=== PATIENT | female | born 1965 | race Caucasian/White ===

== ENCOUNTER 2019-02-23 12:30 | Inpatient (IN) | payer BC ==
[2019-02-23 13:02] VITALS: BMI 34.3
--- NOTE | 2019-03-09 09:37 | HP ---
HISTORY OF PRESENT ILLNESS: The patient is a 54-year-old female, part-time teacher's aide, who has a greater than 1 year history of progressive right hip pain without injury. She has had progressive pain, which is worse with walking, getting dressed, and getting in and out of a car. She has had progressive symptoms despite rest, restriction of activities, attempted lifestyle adjustments and use of ibuprofen. The pain is now interfering with day-to-day activities. PAST MEDICAL HISTORY: The patient is otherwise in good health. She has history of hypothyroidism. She is followed by Dr. Wolff. CURRENT MEDICATIONS: Include; 1. Levothyroxine. 2. Multivitamins. 3. Calcium and vitamin D. ALLERGIES: SHE IS ALLERGIC TO PENICILLIN. FAMILY HISTORY: Otherwise, unremarkable. SOCIAL HISTORY: Otherwise, unremarkable. REVIEW OF SYSTEMS: Otherwise, unremarkable. PHYSICAL EXAMINATION: GENERAL: Reveals a healthy female. HEENT: Unremarkable. NECK: Supple. CHEST: Clear. HEART: Regular rate and rhythm. ABDOMEN: Soft and nontender. PELVIC: Deferred. RECTAL: Deferred. BREASTS: Deferred. EXTREMITIES: Pertinent findings related to the left hip, leg lengths were equal. There is tenderness in the anterior hip and left groin. There are no masses. There is decreased range of motion of the right hip and groin pain with internal rotation of the hip. There is a left antalgic gait. NEUROVASCULAR: Intact. DIAGNOSTIC STUDIES: X-rays of the left hip reveal severe DJD. IMPRESSION: 1. Degenerative arthritis, left hip. 2. History of hypothyroidism. PLAN: Left total hip replacement. The nature of the surgery, length of recovery, and potential complications such as infection, loss of motion, incomplete relief, neurovascular injury, thromboembolic phenomena, leg-length discrepancy, possible transfusion, and need for revision have been discussed in detail. Job ID: [id number]
[2019-03-09 10:00] LABS: #Basophils 0.1 thou/uL (0.0-0.2); #Eosinphils 0.3 thou/uL (0.0-0.7); #Lymphocytes 1.4 thou/uL (1.20-3.40); #Monocytes 0.6 thou/uL (0.11-0.59); #Neutrophils 3.2 thou/uL (1.40-6.50); %Basophils 1.2 % (0.0-1.0); %Eosinophils 6.2 % (0.0-10.0); %Lymphocytes 25.7 % (21.0-51.0); %Monocytes 10.1 % (0.0-10.0); %Neutrophils 56.9 % (42.0-75.0); Hemoglobin 13.6 g/dL (12.0-16.0); Mean Corpuscular HGB CONC 34.3 g/dL (32.0-36.0); Mean Corpuscular Hemoglobin 30.4 pg (27.0-31.0); Mean Corpuscular Volume 88.5 fL (78.0-98.0); Mean Platelet Volume 8.4 fL (7.4-10.4); Platelet Count 251 thou/uL (130-400); Red Blood Cell (RBC) Count 4.48 mill/uL (4.20-5.40); White Blood Cell (WBC) Count 5.6 thou/uL (4.8-10.8)
[2019-03-09 10:01] LABS: Prothrombin Time 12.8 SEC (12.0-14.7)
[2019-03-09 10:07] LABS: Anion Gap 13 mmol/L (10-20); BUN (Urea Nitrogen) 22 mg/dL (9.8-20.1); Calc. Creatinine Clearance 0 mL/min (70-130); Calcium 9.6 mg/dL (7.8-10.44); Carbon Dioxide 24 mmol/L (22-29); Chloride 107 mmol/L (98-107); Estimated GFR-MDRD 61; Glucose 114 mg/dL (70-105); Potassium 4.2 mmol/L (3.5-5.1); Sodium 140 mmol/L (136-145)
[2019-03-15] MEDS ORDERED: Levofloxacin 500 mg/D5W 100 ml Premix Bag ONE (06:08)
[2019-03-15] MEDS ORDERED: Tranexamic Acid 1,000 MG/10 ML VIAL ONE ×2 (06:08→10:05)
[2019-03-15] MEDS ORDERED: Sodium Chloride 0.9% 100 ML ONE (06:08)
[2019-03-15] MEDS ORDERED: Vancomycin HCl 1.5 GM in Sodium Chloride 0.9% 250 ML 300 ML IVPB SCH ×2 (06:15→18:00)
[2019-03-15] MEDS ORDERED: Fentanyl 100 MCG/2 ML VIAL ONE ×4 (06:16→09:38)
[2019-03-15] MEDS ORDERED: Midazolam HCl 2 mg/2 ml Vial ONE (06:16)
[2019-03-15] MEDS ORDERED: Acetaminophen 500 MG TAB PO PRN (07:40)
[2019-03-15] MEDS ORDERED: Bupivacaine/Epinephrine 0.25% 30 ML VIAL ONE (07:44)
[2019-03-15] MEDS ORDERED: Naloxone HCl 0.4 mg/ml Vial IV PRN (07:45)
[2019-03-15] MEDS ORDERED: HYDROcodone/Acetaminophen 5/325 mg Tablet PO PRN ×2 (07:45)
[2019-03-15] MEDS ORDERED: Naloxone HCl 0.4 mg/ml Vial IVP PRN (07:45)
[2019-03-15] MEDS ORDERED: diphenhydrAMINE 25 MG CAP PO PRN ×2 (07:45→09:24)
[2019-03-15] MEDS ORDERED: Zolpidem Tartrate 5 MG TAB PO PRN ×2 (07:45→09:24)
[2019-03-15] MEDS ORDERED: diphenhydrAMINE 50 MG/ML VIAL IM PRN (07:45)
[2019-03-15] MEDS ORDERED: Hydrocerin (Eucerin) Cream 120 gm Jar TOP PRN (07:45)
[2019-03-15] MEDS ORDERED: diphenhydrAMINE 50 MG/ML VIAL IVP PRN (07:45)
[2019-03-15] MEDS ORDERED: Bupivacaine 0.25% 10 ML VIAL EPIDURAL PRN (07:45)
[2019-03-15] MEDS ORDERED: traMADol HCl 50 MG TAB PO PRN ×3 (07:45→09:24)
[2019-03-15] MEDS ORDERED: Ondansetron PF 4 MG/2 ML Vial IVP PRN ×2 (07:45→09:24)
[2019-03-15] MEDS ORDERED: Promethazine HCl 25 MG/ML VIAL IM PRN (07:45)
[2019-03-15] MEDS ORDERED: Promethazine HCl 25 MG SUPP PR PRN (07:45)
[2019-03-15] MEDS ORDERED: Tranexamic Acid 1,000 MG in Sodium Chloride 0.9% 100 ML IVPB SCH ×2 (09:15→09:24)
[2019-03-15] MEDS ORDERED: Fentanyl 100 MCG/2 ML VIAL SLOW IVP PRN ×2 (09:24)
[2019-03-15] MEDS ORDERED: HYDROcodone/Acetaminophen 10/325 mg Tablet PO PRN ×2 (09:24)
[2019-03-15] MEDS ORDERED: Promethazine HCl 25 MG/ML VIAL SLOW IVP PRN (09:24)
--- NOTE | 2019-03-15 10:08 | RAD ---
LEFT HIP TWO VIEWS: HISTORY: Postop total hip replacement. COMPARISON: 12/16/2018 FINDINGS: Recent total left hip replacement without dislocation or periprosthetic fracture. IMPRESSION: Unremarkable postoperative total left hip replacement. POS: C
[2019-03-15] MEDS ORDERED: Thyroid 30 MG TAB PO SCH ×2 (10:15)
[2019-03-15] MEDS ORDERED: Fish Oil 1,000 MG CAP PO SCH (10:15)
[2019-03-15] MEDS ORDERED: Aspirin 81 mg Enteric Coated Tablet PO SCH (10:15)
[2019-03-15] MEDS ORDERED: Calcium Carbonate 500 MG ChewTAB PO PRN (10:15)
--- NOTE | 2019-03-15 10:35 | OP ---
DATE OF PROCEDURE: 03/15/2019 This is Angel Araujo PA-C dictating a report for Greg Anders MD. ANESTHESIA: General via endotracheal tube augmented with indwelling epidural. PREOPERATIVE DIAGNOSIS: End-stage bicompartmental osteoarthritis, left hip. POSTOPERATIVE DIAGNOSIS: End-stage bicompartmental osteoarthritis, left hip. PROCEDURE PERFORMED: Press-fit left total hip arthroplasty. SURGEON: Greg Anders MD STAFF COUNSELOR: Angel Araujo PA-C COMPONENT USED: [facility] Accolade II, press-fit size 3 hip stem with a Trident PSL size 50 mm cluster acetabular shell, 10 degree polyethylene fixed-bearing insert, and a ceramic 36 mm neutral offset femoral head. FINDINGS: End-stage severe degenerative bicompartmental disease, [id number] arthrosis, periarticular osteophyte formation, large serous effusion, hypertrophic synovium and capsule. ESTIMATED BLOOD LOSS: 400 mL. DRAINS: None. SPECIMENS: None. COMPLICATIONS: None. COUNTS: Correct. INPUT: 900 mL. OUTPUT: 200 mL clear yellow urine. INDICATION FOR SURGERY: Cathleen is a 54-year-old white female, who has had progressive left hip, groin, and thigh pain, and problem with standing and walking for the last 5 to 7 years. She has failed conservative management and elected to proceed with total hip arthroplasty as definitive treatment for pain. PROCEDURE IN DETAIL: After informed consent was obtained in the preoperative holding area, the patient was taken to the operative suite where general anesthesia was induced. The patient was then positioned in the lateral decubitus position. The hip was then prepped and draped in usual sterile fashion. The patient received preoperative antibiotics. Prior to incision, time-out was called and all members of the surgical team agreed upon site, surgeon, and patient. After this, a longitudinal incision was made directly over the trochanter, noted by palpation extending 2 fingerbreadths above and below the trochanter. The deeper subcutaneous layer was undermined with Bovie electrocautery. The iliotibial band was encountered and incised sharply and the plane below this was developed bluntly. A Charnley retractor was placed to hold this opened. The lateral aspect of the trochanter and the abductor muscles were encountered and then reflected anteriorly off the trochanter using Bovie electrocautery. Once this was completed, the anterior capsule was then encountered and identified and copious capsulotomy was carried out, exposing the femoral neck and head. Dislocation maneuver was then performed and an in situ provisional neck cut was then made using the oscillating saw. Attention was then turned to acetabular preparation. Sequential reaming was carried out up to the appropriate diameter and a trial was then malleted into place with good firm resistance and no pullout. The permanent acetabular shell was then malleted squarely into place, as was the appropriate liner. Once completed, the wound was copiously irrigated and attention was then turned to femoral preparation. Flexion and external rotation were performed of the exposed thigh and femoral elevators were then placed at the proximal aspect of the wound. Canal finder was used to establish the length of the canal and sequential reaming was carried out, followed by broaching. Once the appropriate stability was established with the trial broaches with flexion, extension and rotational stability, we did trial with neutral and 2 mm offset incremental necks. Once the appropriate size was decided upon, with good stability noted with flexion, extension, internal and external rotation and shuck being negative, we removed the femoral trial broach and malletted into place the permanent prosthesis with good firm fit, which was also stable to rotation. Again, the hip felt very stable to flexion, extension, internal and external rotation. Leg lengths appeared near anatomic clinically and we were quite happy with prosthesis placement. Copious irrigation was then carried out through the entirety of the wound. Primary closure of the abductors was accomplished with interrupted #2 Vicryl [id number] stitches and the IT band was then closed with interrupted #2 Vicryl, oversewn with a #2 running barbed Quill stitch. Subcutaneous fascia was closed with running barbed Quill stitch and a subcuticular Monocryl barbed Quill stitch was used for skin closure and augmented with skin cement. A sterile dressing was applied. The procedure was terminated without any complication. All counts were correct. The patient was awakened in the operative suite and taken to the recovery room in stable condition. Job ID: [id number]
[2019-03-15] MEDS ORDERED: ALPRAZolam 0.5 MG TAB PO PRN (11:57)
[2019-03-15] MEDS ORDERED: Ketorolac Tromethamine 30 MG/ML VIAL IVP SCH (12:00)
[2019-03-15] MEDS ORDERED: Dexamethasone 20 MG/5 ML VIAL ONE (15:16)
[2019-03-15] MEDS ORDERED: Ketorolac Tromethamine 30 MG/ML VIAL ONE (15:16)
[2019-03-15] MEDS ORDERED: Labetalol HCl 100 MG/20 ML VIAL ONE (15:16)
[2019-03-15] MEDS ORDERED: PROPOFOL 200 MG/20 ML VIAL ONE (15:16)
[2019-03-15] MEDS ORDERED: Lidocaine 1% PF 5 ML VIAL ONE (15:16)
[2019-03-15] MEDS ORDERED: Ondansetron PF 4 MG/2 ML Vial ONE (15:16)
[2019-03-15] MEDS ORDERED: Glycopyrrolate 0.2 MG/ML 5 ML SYRINGE ONE (15:16)
[2019-03-15] MEDS ORDERED: Rocuronium Bromide 10 MG/ML (10ML VIAL) ONE (15:16)
[2019-03-16] MEDS ORDERED: Levofloxacin 500 mg/D5W 100 ml Premix Bag ONE (05:18)
[2019-03-16] MEDS ORDERED: Aspirin 81 mg Enteric Coated Tablet ONE (08:23)
[2019-03-16] MEDS ORDERED: Ketorolac Tromethamine 30 MG/ML VIAL ONE (08:23)
[2019-03-16] MEDS ORDERED: Acetaminophen 325 MG TAB ONE (08:24)
[2019-03-16] MEDS: Ketorolac Tromethamine 30 MG/ML VIAL IVP PRN ×2 (08:35→22:39)
[2019-03-16] MEDS: Acetaminophen 325 MG TAB PO PRN ×2 (08:35→14:33)
[2019-03-16] MEDS: Aspirin 81 mg Enteric Coated Tablet PO SCH ×3 (08:35→20:41)
[2019-03-16] MEDS: Thyroid 30 MG TAB PO SCH ×2 (12:05)
[2019-03-16] MEDS: Multivitamin W/ Minerals 1 TAB PO SCH (12:08)
[2019-03-16] MEDS: Senokot S 8.6-50 MG TAB PO SCH ×2 (12:08→20:41)
[2019-03-16] MEDS: Fish Oil 1,000 MG CAP PO SCH (12:08)
[2019-03-16] MEDS: Ferrous Gluconate 324 MG TAB PO SCH ×2 (12:08→17:27)
[2019-03-16] MEDS: fentaNYL Citrate/PF 500 MCG, Bupivacaine 10 ML in Sodium Chloride 0.9% 80 ML EPIDURAL SCH (12:44)
--- NOTE | 2019-03-16 13:27 | PRG ---
DATE OF SERVICE: 03/16/2019 SUBJECTIVE: Cathleen is a 54-year-old white female, who is postoperative day #1 from a left total hip arthroplasty. She has no complaints and is feeling very well this morning. Pain is well controlled with the epidural. OBJECTIVE: VITAL SIGNS: Temperature 98.7, pulse 71, respiratory rate 16 and nonlabored, O2 saturation 95% on room air, and blood pressure is 117/72. GENERAL: She is alert and oriented to person, place, time, and situation, grossly nonfocal. Appropriate. Responsive with examiner. EXTREMITIES: Incision is clean. No strike through. No erythema. No malrotation or shortening of the extremity. IMPRESSION: A 54-year-old female, postoperative day #1, left total hip arthroplasty, doing well. PLAN: Continue current care. Probable discharge tomorrow. Job ID: [id number]
[2019-03-16 14:46] LABS: Mean Corpuscular HGB CONC 33.2 g/dL (32.0-36.0); Mean Corpuscular Hemoglobin 30.2 pg (27.0-31.0); Mean Platelet Volume 8.4 fL (7.4-10.4); Platelet Count 194 thou/uL (130-400); RBC Distribution Width 12.2 % (11.5-14.5); Red Blood Cell (RBC) Count 3.32 mill/uL (4.20-5.40); White Blood Cell (WBC) Count 9.2 thou/uL (4.8-10.8)
[2019-03-17] MEDS: fentaNYL Citrate/PF 500 MCG, Bupivacaine 10 ML in Sodium Chloride 0.9% 80 ML EPIDURAL SCH (02:56)
[2019-03-17 04:47] LABS: Hemoglobin 9.9 g/dL (12.0-16.0); Mean Corpuscular HGB CONC 33.4 g/dL (32.0-36.0); Mean Corpuscular Hemoglobin 30.6 pg (27.0-31.0); Mean Corpuscular Volume 91.5 fL (78.0-98.0); Mean Platelet Volume 8.9 fL (7.4-10.4); Platelet Count 172 thou/uL (130-400); RBC Distribution Width 12.1 % (11.5-14.5); Red Blood Cell (RBC) Count 3.25 mill/uL (4.20-5.40); White Blood Cell (WBC) Count 7.6 thou/uL (4.8-10.8)
[2019-03-17] MEDS: Thyroid 30 MG TAB PO SCH ×2 (08:58→08:59)
[2019-03-17] MEDS: Ferrous Gluconate 324 MG TAB PO SCH (08:59)
[2019-03-17] MEDS: Fish Oil 1,000 MG CAP PO SCH (08:59)
[2019-03-17] MEDS: Aspirin 81 mg Enteric Coated Tablet PO SCH (09:00)
[2019-03-17] MEDS: Multivitamin W/ Minerals 1 TAB PO SCH (09:00)
[2019-03-17] MEDS: Senokot S 8.6-50 MG TAB PO SCH (09:00)
[2019-03-17 11:18] VITALS: BP 112/69; TEMP 99
[2019-03-17] MEDS: Acetaminophen 325 MG TAB PO PRN (12:09)
== END 2019-03-17 14:30 | disposition home or self-care (01) | DRG 470 ==
LOC: SURG A 03-15 05:49 → SJJU 03-15 11:34
PROVIDERS: ADMIT Orthopaedic Surgery; ATTEND Orthopaedic Surgery
PROC: 0SRB04A Replacement of Left Hip Joint with Ceramic on Polyethylene Synthetic Substitute, Uncemented, Open Approach (ICD-10-PCS; principal; 2019-03-15)
DX: M16.12 Unilateral primary osteoarthritis, left hip (principal); E03.9 Hypothyroidism, unspecified; Z79.899 Other long term (current) drug therapy; Z88.0 Allergy status to penicillin
CPT/HCPCS: 36415; 80048; 85025; 85027; 85610; 86850; 86900; 86901; J1100; J1885; J1956; J2001; J2250; J2405; J2704; J3010; J3370; J3490; J7050

== ENCOUNTER 2019-02-23 12:55 | Outpatient (CLI) | payer BC ==
[2019-02-23 15:17] LABS: Bacteria/HPF None Seen HPF (None Seen); Hyaline Casts/LPF NONE SEEN LPF (0-3 Hyaline); RBC/HPF 0-3 HPF (0-3); Squamous Epithelial 0-3 HPF (0-3); WBC/HPF 0-3 HPF (0-3)
== END 2019-02-23 12:56 | disposition home or self-care (01) ==
LOC: LABBT 12:55
PROVIDERS: ATTEND Orthopaedic Surgery
DX: Z01.818 Encounter for other preprocedural examination (principal); M16.12 Unilateral primary osteoarthritis, left hip
CPT/HCPCS: 81015; 87081; 87086; 93005; 93010

== ENCOUNTER 2019-03-09 09:07 | Outpatient (CLI) | payer BC | END 2019-03-09 09:08 | disposition home or self-care (01) | LOC: LABBT 09:07 | PROVIDERS: ATTEND Orthopaedic Surgery | DX: Z53.9 Procedure and treatment not carried out, unspecified reason (principal) ==

== ENCOUNTER 2019-04-27 09:54 | Outpatient (CLI) | payer BC ==
--- NOTE | 2019-05-08 11:43 | MMO ---
Bilateral MAMMO Bilat Screen DDI. CLINICAL HISTORY: Patient is 54 years old and is seen for screening. The patient has no family history of breast cancer. The patient has no personal history of cancer. VIEWS: The views performed were: bilateral craniocaudal and bilateral mediolateral oblique. FILMS COMPARED: The present examination has been compared to a prior imaging study performed at [facility] on 08/14/2015. This study has been interpreted with the assistance of computer-aided detection. MAMMOGRAM FINDINGS: There are scattered fibroglandular densities. There is a mass measuring 5 millimeters seen in the posterior central region of the left breast. In the right breast, there are no suspicious masses, calcifications or areas of architectural distortion. IMPRESSION: MASS IN THE LEFT BREAST REQUIRES ADDITIONAL EVALUATION. SPOT COMPRESSION IS RECOMMENDED. AN ULTRASOUND EXAM IS RECOMMENDED. ACR BI-RADS Category 0 - Incomplete: Need additional imaging evaluation. [facility] will notify the patient of the need for additional imaging services. MAMMOGRAPHY NOTE: 1. A negative mammogram report should not delay a biopsy if a dominant of clinically suspicious mass is present. 2. Approximately 10% to 15% of breast cancers are not detected by mammography. 3. Adenosis and dense breasts may obscure an underlying neoplasm. Reported by: Yvonne EASTON Electonically Signed: [id number]
== END 2019-04-27 09:55 | disposition home or self-care (01) ==
LOC: SCSMAMMO 09:54
PROVIDERS: ATTEND Family Medicine
DX: Z12.31 Encounter for screening mammogram for malignant neoplasm of breast (principal); N63.20 Unspecified lump in the left breast, unspecified quadrant
CPT/HCPCS: 77067

== ENCOUNTER 2019-06-05 10:14 | Outpatient (CLI) | payer BC ==
--- NOTE | 2019-06-05 10:52 | MMO ---
Left Breast MAMMO Unilat Diag DDI LT+DANYELLE. CLINICAL HISTORY: Patient is 54 years old and is seen for diagnostic exam. The patient has no family history of breast cancer. The patient has no personal history of cancer. VIEWS: The views performed were: left craniocaudal spot compression with tomosynthesis; left mediolateral oblique spot compression with tomosynthesis; and left mediolateral with tomosynthesis. FILMS COMPARED: The present examination has been compared to prior imaging studies performed at [facility] on 04/27/2019, and at [facility] on 08/14/2015. MAMMOGRAM FINDINGS: There are scattered fibroglandular densities. Additional evaluation was performed for the mass in the left breast, central seen on 04/27/2019. On the present examination, there is a mass measuring 5 millimeters in the posterior central region of the left breast. Left breast mass on further imaging has a fatty hilum and is consistent with a deep intramammory lymph node. There are no suspicious masses, suspicious calcifications, or new areas of architectural distortion. IMPRESSION: THERE IS NO MAMMOGRAPHIC EVIDENCE OF MALIGNANCY. THE FINDINGS AND RECOMMENDATIONS WERE DISCUSSED WITH THE PATIENT PRIOR TO HER LEAVING THE CENTER. A ROUTINE FOLLOW-UP MAMMOGRAM IN 1 YEAR IS RECOMMENDED. THE RESULTS OF THIS EXAM WERE SENT TO THE PATIENT. ACR BI-RADS Category 2 - Benign finding MAMMOGRAPHY NOTE: 1. A negative mammogram report should not delay a biopsy if a dominant of clinically suspicious mass is present. 2. Approximately 10% to 15% of breast cancers are not detected by mammography. 3. Adenosis and dense breasts may obscure an underlying neoplasm. Reported by: TORRES MCGUIRE MD Electonically Signed: [id number]
== END 2019-06-05 10:15 | disposition home or self-care (01) ==
LOC: BICMAMMO 10:14
PROVIDERS: ATTEND Family Medicine
DX: N63.20 Unspecified lump in the left breast, unspecified quadrant (principal)
CPT/HCPCS: G0279